=== PATIENT | male | born 1960 | race Hispanic/Latino ===

== ENCOUNTER → 2022-09-22 | Outpatient (CLI) | payer BC ==
[~2022-09-22] MED LIST: REGADENOSON 0.4 MG/5 ML PF SYG IVP ONE
== END | disposition home or self-care (01) ==
LOC: SHCH 08:46
PROVIDERS: ATTEND Internal Medicine Cardiovascular Disease
DX: R94.31 Abnormal electrocardiogram [ECG] [EKG] (principal)
CPT/HCPCS: 78452; 96374; 93017; J2785; A9500 ×2

== ENCOUNTER → 2022-09-30 | Outpatient (CLI) | payer BC | END | disposition home or self-care (01) | LOC: RAH 13:51 → EDUNIT# 14:00 | PROVIDERS: ATTEND Internal Medicine Cardiovascular Disease | DX: I08.0 Rheumatic disorders of both mitral and aortic valves (principal); R94.31 Abnormal electrocardiogram [ECG] [EKG] | CPT/HCPCS: 93306 ==

== ENCOUNTER 2022-10-17 06:27 | Day surgery (SDC) | payer BC ==
[2022-10-15 09:59] LABS: BASOPHILS % (AUTO) 0.3 % (0.0-5.0); EOSINOPHILS % (AUTO) 5.1 % (0.0-8.0); HEMATOCRIT 45.5 % (42-54); LYMPHOCYTES % (AUTO) 18.7 % (21.0-51.0); MEAN CORPUSCULAR HEMOGLOBIN 28.3 pg (27.0-33.0); MEAN CORPUSCULAR HGB CONC 32.7 g/dL (32.0-36.0); MEAN CORPUSCULAR VOLUME 86.3 fL (79-99); MONOCYTES % (AUTO) 8.8 % (3.0-13.0); NEUTROPHILS % (AUTO) 66.5 % (40.0-77.0); PLATELET COUNT (AUTO) 201 K/uL (130-400); RED BLOOD CELL COUNT(AUTO) 5.27 MIL/uL (4.50-6.20); RED CELL DISTRIBUTION WIDTH 13.2 % (11.0-15.5); WHITE BLOOD COUNT (AUTO) 7.1 K/uL (4.8-10.8)
[2022-10-15 10:07] LABS: CREATININE 0.9 mg/dL (0.5-1.5); POTASSIUM 4.2 mmol/L (3.5-5.1)
[2022-10-15 10:13] LABS: INR 0.99 (0.85-1.15); PROTHROMBIN TIME 10.8 SEC (9.6-11.6)
[2022-10-15 10:14] LABS: PARTIAL THROMBOPLASTIN TIME 30.6 SEC (26.3-35.5)
[2022-10-15 10:38] LABS: B-TYPE NATRIURETIC PEPTIDE 400 pg/mL (0-100)
[2022-10-15 16:07] VITALS: BP 151/63
[~2022-10-17] VITALS: Ht 167.6 cm; Wt 101.2 kg
[2022-10-17] VITALS (9 sets, daily range): BP systolic 129–163; BP diastolic 65–78
[~2022-10-17 06:27] MED LIST changes: +AEC81 PO; +ATOR10 PO; +FURO20TA4 PO; +GLIP10TA9 PO; +METF-444 PO; +METO-408 PO; +NITR0.4T50 SL; -REGADENOSON 0.4 MG/5 ML PF SYG IVP ONE
[2022-10-17] MEDS ORDERED: 0.9%NACL 1000ML 1,000 ML IV ONE (07:32)
[2022-10-17] MEDS ORDERED: NITROGLYCERIN 50MG VIAL ONE (09:39)
[2022-10-17] MEDS ORDERED: LIDOCAINE HCL 400MG/20ML VIAL ONE (09:39)
[2022-10-17] MEDS ORDERED: MIDAZOLAM HCL 1 MG/ML 2ML VIAL ONE (09:39)
[2022-10-17] MEDS ORDERED: HEPARIN 10,000 UNIT/10ML (1,000 UNIT/ML) VIAL ONE (09:39)
[2022-10-17] MEDS ORDERED: FENTANYL CITRATE PF 50 MCG/1 ML 2ML VIAL ONE (09:39)
[2022-10-17] MEDS ORDERED: IOHEXOL 350 MG/ML 100ML INFUS..BTL IV ONE (09:39)
[2022-10-17] MEDS ORDERED: NICARDIPINE 25MG INJ IV ONE (09:52)
[2022-10-17] MEDS ORDERED: 0.9%NACL 1000ML 1,000 ML IV SCH (11:30)
[2022-10-17] MEDS ORDERED: GLUCAGON 1MG KIT 1 MG ML IM PRN (11:30)
[2022-10-17] MEDS ORDERED: DEXTROSE 50%-WATER 50 ML DISP.SYRIN IV PRN (11:30)
== END 2022-10-17 14:50 | disposition home or self-care (01) ==
LOC: DAH 06:27
PROVIDERS: ATTEND Internal Medicine Cardiovascular Disease
DX: I25.119 Atherosclerotic heart disease of native coronary artery with unspecified angina pectoris (principal); R94.31 Abnormal electrocardiogram [ECG] [EKG]; E11.9 Type 2 diabetes mellitus without complications; I50.22 Chronic systolic (congestive) heart failure; J90 Pleural effusion, not elsewhere classified; Z79.899 Other long term (current) drug therapy; Z79.01 Long term (current) use of anticoagulants; Z79.82 Long term (current) use of aspirin; Z86.16 Personal history of COVID-19; Z83.3 Family history of diabetes mellitus; Z82.49 Family history of ischemic heart disease and other diseases of the circulatory system
CPT/HCPCS: 80048; 83880; 85025; 85610; 85730; 36415; 71045; 93005; 93458; 82948 ×2; C1769; C1894; J3010; J3490 ×3; J7030; J1644 ×2; J2250; Q9967; A4215; A4222; A4221; A4663; A4216; A4606; Q9965 ×2; A4223 ×3; 96360; 96361; 99156; 99157

== ENCOUNTER → 2023-02-18 | Outpatient (CLI) | payer BC ==
[~2023-02-18] MED LIST changes: -ATOR10 PO; +ATOR40TA71 PO; +ISOS30TA92 PO
== END | disposition home or self-care (01) ==
LOC: SHCH 14:38
PROVIDERS: ATTEND Internal Medicine Cardiovascular Disease
DX: I35.8 Other nonrheumatic aortic valve disorders (principal); I11.9 Hypertensive heart disease without heart failure; E11.9 Type 2 diabetes mellitus without complications; E78.5 Hyperlipidemia, unspecified; Z95.1 Presence of aortocoronary bypass graft
CPT/HCPCS: 93306

== ENCOUNTER 2024-02-10 13:33 | Inpatient (IN) | payer BC ==
[~2024-02-10] VITALS: Ht 167.6 cm; Wt 107.0 kg
[2024-02-10] VITALS (15 sets, daily range): BP systolic 78–122; BP diastolic 44–74; PULSE 98–120; RESP 1–18; TEMP 100.7; O2SAT 100
[~2024-02-10 13:33] MED LIST changes: +GLIP10TA16 PO; -GLIP10TA9 PO; +rocuRONium bROMide 10MG/1ML 5ML VL IV ONE
[2024-02-10] MEDS: CEFTRIAXONE 2GM VIAL IVPB ONE (14:28)
[2024-02-10] MEDS: 0.9%NACL 1000ML 2,859 ML IV ONE (14:29)
[2024-02-10 14:34] LABS: BASOPHILS # (AUTO) 0.02 K/uL (0.00-0.20); BASOPHILS % (AUTO) 0.2 % (0.0-5.0); HEMATOCRIT 39.7 % (42-54); IMMATURE GRANULOCYTE ABSOLUTE 0.13 K/uL (0-1); LYMPHOCYTES # (AUTO) 0.2 K/uL (1.0-4.8); LYMPHOCYTES % (AUTO) 2.2 % (21.0-51.0); MEAN CORPUSCULAR HEMOGLOBIN 29.8 pg (27.0-33.0); MEAN CORPUSCULAR HGB CONC 34.5 g/dL (32.0-36.0); MEAN CORPUSCULAR VOLUME 86.5 fL (79-99); MONOCYTES # (AUTO) 0.2 K/uL (0.1-1.0); MONOCYTES % (AUTO) 2.2 % (3.0-13.0); PLATELET COUNT (AUTO) 101 K/uL (130-400); RED BLOOD CELL COUNT(AUTO) 4.59 MIL/uL (4.50-6.20); RED CELL DISTRIBUTION WIDTH 14.3 % (11.0-15.5); WHITE BLOOD COUNT (AUTO) 9.6 K/uL (4.8-10.8)
[2024-02-10 14:47] LABS: CREATININE 2.7 mg/dL (0.5-1.3); POTASSIUM 3.5 mmol/L (3.5-5.1)
[2024-02-10 15:02] LABS: INFLUENZA TYPE A Negative For Type A (NEGATIVE); INFLUENZA TYPE B Negative For Type B (NEGATIVE)
[2024-02-10] MEDS: AZITHROMYCIN 500MG+NS 250ML 250 ML IVPB SCH (15:20)
[2024-02-10] MEDS: ALBUTEROL 0.083% 2.5 MG/3 ML INH IH ONE (15:25)
[2024-02-10] MEDS ORDERED: rocuRONium bROMide 10MG/1ML 5ML VL IV ONE (16:15)
[2024-02-10 16:36] LABS: APPEARANCE,URINE CLOUDY (CLEAR); BILIRUBIN,URINE NEGATIVE (NEGATIVE); COLOR,URINE YELLOW (YELLOW); GLUCOSE, URINE (UA) 300 mg/dL (NEGATIVE); KETONES,URINE NEGATIVE (NEGATIVE); LEUKOCYTE ESTERASE ,URINE 250 Leu/uL (NEGATIVE); NITRATE,URINE NEGATIVE (NEGATIVE); OCCULT BLOOD,URINE LARGE (NEGATIVE); PROTEIN,URINE 50 mg/dL (NEGATIVE); UROBILINOGEN,URINE 0.2 mg/dL (0.2-1.0)
[2024-02-10 16:37] LABS: ADD UA MICROSCOPIC YES
[2024-02-10 16:45] LABS: BACTERIA,URINE MOD /HPF (None Seen); MUCUS,URINE RARE LPF (None Seen); SQUAMOUS EPITHELIAL CELL,UR RARE /HPF (0-2)
[2024-02-10] MEDS: LORazepam 2 MG/ML 1 ML VIAL IVP ONE (16:49)
[2024-02-10] MEDS: LORazepam 2 MG/ML 1 ML VIAL ONE (16:49)
[2024-02-10 16:51] LABS: ABG HCO3 15.9 mmol/L (21.0-28.0); ABG OXYGEN SATURATION 96.4 % (94.0-98.0); ABG PCO2 25 mmHg (35-48); ABG PH 7.414 (7.350-7.450); CARBON MONOXIDE 0.1 % (0.5-1.5); DEVICE COMMENT RBMIKE; HHb 3.6; PO2, ARTERIAL BG 85.6 mmHg (83.0-108.0); VENT MODE, BG NC (ROOM AIR)
[2024-02-10] MEDS: acetaMINOPHEN 650 MG SUPPOSITORY RC ONE ×2 (16:59)
[2024-02-10 17:41] LABS: ABG HCO3 16.9 mmol/L (21.0-28.0); ABG OXYGEN SATURATION 94.2 % (94.0-98.0); ABG PCO2 27 mmHg (35-48); ABG PH 7.412 (7.350-7.450); DEVICE COMMENT RR; PO2, ARTERIAL BG 68.3 mmHg (83.0-108.0); VENT MODE, BG NC (ROOM AIR)
[2024-02-10] MEDS: NOREPINEPHRIN 4MG/NS 250ML 250 ML IV SCH ×2 (18:14→20:46)
[2024-02-10] MEDS: FENTanyl 1000MCG+NS 100ML 100 ML IV SCH (18:16)
[2024-02-10] MEDS: NOREPINEPHRIN 4MG/NS 250ML 250 ML IV ONE (18:16)
[2024-02-10] MEDS: 0.9%NACL 1000ML 1,000 ML IV ONE (18:17)
[2024-02-10] MEDS ORDERED: phenylEPHRINE HCL 10 MG in 0.9% NACL 250ML 250 ML IV PRN (18:30)
[2024-02-10] MEDS: phenylEPHRINE HCL 10 MG/ML 1ML VIAL IV ONE (18:59)
[2024-02-10] MEDS: MIDAZOLAM 50MG-0.9% NS 50ML 50 ML IV SCH (19:00)
[2024-02-10] MEDS: 0.9%NACL 1000ML 1,000 ML IV SCH (19:23)
[2024-02-10] MEDS ORDERED: ondanSETRON 4MG INJ IVP PRN (19:30)
[2024-02-10] MEDS: ibuPROFEN 600 MG TABLET PO ONE (19:35)
[2024-02-10] MEDS: dexaMETHasone SOD PHOSPHATE 4 MG/ML 1ML VIAL IVP ONE (20:47)
[2024-02-10 21:21] LABS: ABG BASE EXCESS -7.9 mmol/L (-2.0-3.0); ABG HCO3 16.8 mmol/L (21.0-28.0); ABG OXYGEN SATURATION 97.9 % (94.0-98.0); ABG PCO2 32 mmHg (35-48); ABG PH 7.333 (7.350-7.450); CARBON MONOXIDE 0.2 % (0.5-1.5); DEVICE COMMENT LR RN; HHb 2.1; VENT MODE, BG AC (ROOM AIR)
[2024-02-10] MEDS: DOXYCYCLINE 100MG+NS 250ML IV SCH (21:27)
[2024-02-10] MEDS: Solu-medROL 40MG VIAL IVP SCH (21:35)
[2024-02-10 21:48] LABS: ALBUMIN 2.4 g/dL (3.5-5.0); BILIRUBIN,DIRECT 0.3 mg/dL (0.0-0.3); BILIRUBIN,TOTAL 0.7 mg/dL (0.2-1.0); TOTAL PROTEIN, SERUM 6.2 g/dL (6.0-8.3)
[2024-02-10] MEDS: INSULIN humuLIN R 100 UNIT/ML 3ML SQ SCH (22:50)
[2024-02-10] MEDS: HEParin 5,000 UNIT VIAL SQ SCH (22:51)
[2024-02-10] MEDS ORDERED: HEParin 5,000 UNIT VIAL SQ SCH (23:00)
[2024-02-10 23:03] LABS: CREATININE 2.6 mg/dL (0.5-1.3); POTASSIUM 4.3 mmol/L (3.5-5.1)
[2024-02-10] MEDS: IpraTROPium 0.5 MG/2.5 ML INH IH SCH (23:44)
[2024-02-10] MEDS: ALBUTEROL 0.083% 2.5 MG/3 ML INH IH SCH (23:44)
[2024-02-11] VITALS (105 sets, daily range): BP systolic 83–150; BP diastolic 38–86; PULSE 75–100; RESP 15–23; TEMP 98.4–101.2; O2SAT 98–100
[2024-02-11] MEDS: acetaMINOPHEN 325 MG TAB PO PRN (00:56)
[2024-02-11] MEDS: VASOpressin 20 UNITS/ML 1ML Vi 20 UNITS in 0.9%NACL 100ML 100 ML IV SCH (03:50)
[2024-02-11 04:07] LABS: BASOPHILS # (AUTO) 0.11 K/uL (0.00-0.20); BASOPHILS % (AUTO) 0.5 % (0.0-5.0); HEMATOCRIT 35.8 % (42-54); IMMATURE GRANULOCYTE ABSOLUTE 1.27 K/uL (0-1); LYMPHOCYTES # (AUTO) 0.5 K/uL (1.0-4.8); LYMPHOCYTES % (AUTO) 2.1 % (21.0-51.0); MEAN CORPUSCULAR HEMOGLOBIN 29.8 pg (27.0-33.0); MEAN CORPUSCULAR HGB CONC 33.5 g/dL (32.0-36.0); MEAN CORPUSCULAR VOLUME 88.8 fL (79-99); MONOCYTES % (AUTO) 4.6 % (3.0-13.0); NEUTROPHILS # (AUTO) 18.4 K/uL (1.8-7.7); NEUTROPHILS % (AUTO) 86.8 % (40.0-77.0); PLATELET COUNT (AUTO) 64 K/uL (130-400); RED BLOOD CELL COUNT(AUTO) 4.03 MIL/uL (4.50-6.20); RED CELL DISTRIBUTION WIDTH 14.6 % (11.0-15.5); WHITE BLOOD COUNT (AUTO) 21.2 K/uL (4.8-10.8)
[2024-02-11 04:34] LABS: CREATININE 2.5 mg/dL (0.5-1.3); PHOSPHORUS 4.8 mg/dL (2.5-4.9); POTASSIUM 4.7 mmol/L (3.5-5.1); THYROID STIMULATING HORMONE 0.77 uIU/mL (0.36-3.74)
[2024-02-11] MEDS: CEFTRIAXONE 2GM VIAL IVPB SCH (08:24)
[2024-02-11] MEDS: PANTOPrazole 40 MG/VIAL IVP SCH (08:24)
[2024-02-11] MEDS ORDERED: ENOXAPARIN SODIUM 40 MG/0.4 ML SYRINGE SQ SCH (09:00)
[2024-02-11] MEDS: SODIUM BICARB 50MEQ 50ML VIAL IV ONE (10:16)
[2024-02-11 11:09] LABS: ABG BASE EXCESS -5.6 mmol/L (-2.0-3.0); ABG PCO2 40 mmHg (35-48); ABG PH 7.319 (7.350-7.450); CARBON MONOXIDE 0.1 % (0.5-1.5); DEVICE COMMENT NELLY NP RR; PO2, ARTERIAL BG 98.3 mmHg (83.0-108.0); VENT MODE, BG AC (ROOM AIR)
[2024-02-11] MEDS: SODIUM BICARB 8.4% 50ML SYRING 150 MEQ in DEXTROSE 5%-WATER 1,000 ML IVP SCH (12:00)
[2024-02-11 12:10] LABS: CREATININE 2.5 mg/dL (0.5-1.3); POTASSIUM 4.9 mmol/L (3.5-5.1)
[2024-02-11] MEDS ORDERED: VANCOMYCIN PROTOCOL PER PHARMACY IV SCH (13:00)
[2024-02-11] MEDS: ceFEPime HCL 1 GM VIAL IVPB SCH (13:24)
[2024-02-11] MEDS: acetaMINOPHEN 650 MG SUPPOSITORY RC PRN (13:38)
[2024-02-11] MEDS: dexmedeTOMIDine 400MCG/NS100ML IV SCH (13:42)
[2024-02-11] MEDS: VANCOMYCIN 2GM/500 ML BAG 500 ML IV ONE (14:00)
[2024-02-11] MEDS: metRONIDazole 500MG/100ML BAG 100 ML IVPB SCH (14:14)
[2024-02-11 19:28] LABS: POTASSIUM,URINE RANDOM 52 mmol/L (25-125); SODIUM,URINE RANDOM 27 mmol/l (40-220)
[2024-02-11 19:29] LABS: CHLORIDE,URINE RANDOM 29 mmol/L (110-250)
[2024-02-11] MEDS: CHLORHEXIDINE GLUCONATE 15 ML MOUTHWASH MM SCH (20:21)
[2024-02-11] MEDS: ARTIFICAL TEARS SOL 15 ML OU SCH (20:53)
[2024-02-12] VITALS (120 sets, daily range): BP systolic 86–141; BP diastolic 53–80; PULSE 66–83; RESP 18–25; TEMP 96.9–100; O2SAT 95–100
[2024-02-12 03:40] LABS: ABG BASE EXCESS -1.9 mmol/L (-2.0-3.0); ABG HCO3 22.5 mmol/L (21.0-28.0); ABG OXYGEN SATURATION 98.5 % (94.0-98.0); ABG PCO2 37 mmHg (35-48); ABG PH 7.401 (7.350-7.450); CARBON MONOXIDE 0.3 % (0.5-1.5); DEVICE COMMENT RR; HHb 1.5; PO2, ARTERIAL BG 137.4 mmHg (83.0-108.0); VENT MODE, BG AC (ROOM AIR)
[2024-02-12 04:11] LABS: BASOPHILS # (AUTO) 0.05 K/uL (0.00-0.20); BASOPHILS % (AUTO) 0.5 % (0.0-5.0); HEMATOCRIT 34.6 % (42-54); IMMATURE GRANULOCYTE ABSOLUTE 0.36 K/uL (0-1); LYMPHOCYTES # (AUTO) 0.5 K/uL (1.0-4.8); LYMPHOCYTES % (AUTO) 4.6 % (21.0-51.0); MEAN CORPUSCULAR HEMOGLOBIN 29.7 pg (27.0-33.0); MEAN CORPUSCULAR HGB CONC 33.2 g/dL (32.0-36.0); MEAN CORPUSCULAR VOLUME 89.4 fL (79-99); MONOCYTES # (AUTO) 0.5 K/uL (0.1-1.0); MONOCYTES % (AUTO) 4.9 % (3.0-13.0); NEUTROPHILS # (AUTO) 9.6 K/uL (1.8-7.7); NEUTROPHILS % (AUTO) 86.7 % (40.0-77.0); NUCLEATED RED BLOOD CELLS 0.2 % (0.0-0.19); RED BLOOD CELL COUNT(AUTO) 3.87 MIL/uL (4.50-6.20); RED CELL DISTRIBUTION WIDTH 14.8 % (11.0-15.5); WHITE BLOOD COUNT (AUTO) 11.1 K/uL (4.8-10.8)
[2024-02-12 04:45] LABS: CREATININE 1.4 mg/dL (0.5-1.3); PHOSPHORUS 2.9 mg/dL (2.5-4.9); POTASSIUM 4.5 mmol/L (3.5-5.1); URIC ACID 7.2 mg/dL (2.6-7.2)
[2024-02-12 04:50] LABS: B-TYPE NATRIURETIC PEPTIDE 726 pg/mL (0-100)
[2024-02-12 05:05] LABS: PLATELET COUNT (AUTO) 72 K/uL (130-400)
[2024-02-12] MEDS: atorVAStatin 40 MG TABLET PO SCH (08:06)
[2024-02-12] MEDS: polyETHYLene GLYCol 3350 17 GM POWD.PACK PO SCH (08:06)
[2024-02-12] MEDS ORDERED: ASPIRIN 81 MG EC TAB PO SCH (09:00)
[2024-02-12] MEDS ORDERED: SPIR25TA6 PO (11:07)
[2024-02-12] MEDS ORDERED: FAMO20TA8 PO (11:07)
[2024-02-12] MEDS ORDERED: TELM40TA8 PO (11:09)
[2024-02-12] MEDS: MEROPENEM 2 GM in 0.9%NACL 100ML 100 ML IV SCH (11:53)
[2024-02-12] MEDS: INSULIN GLARgine 100 UNITS/ML 10 ML VIAL SQ SCH (11:56)
[2024-02-12 11:57] LABS: INR 1.18 (0.85-1.15); PROTHROMBIN TIME 12.6 SEC (9.6-11.6)
[2024-02-12] MEDS ORDERED: COMPOUND IV MISC 1 EACH IVSOLN MISC PRN (12:00)
[2024-02-12] MEDS ORDERED: VANCOMYCIN 1G/250ML KIT 250 ML IV SCH (14:00)
[2024-02-12] MEDS: miDODRine HCL 5 MG TABLET PO SCH (14:37)
[2024-02-13] VITALS (157 sets, daily range): BP systolic 96–145; BP diastolic 44–81; PULSE 61–107; RESP 13–46; TEMP 96.4–100; O2SAT 93–100
[2024-02-13 03:49] LABS: ABG BASE EXCESS 0.5 mmol/L (-2.0-3.0); ABG HCO3 24.1 mmol/L (21.0-28.0); ABG OXYGEN SATURATION 95.1 % (94.0-98.0); ABG PCO2 36 mmHg (35-48); ABG PH 7.444 (7.350-7.450); DEVICE COMMENT RB RN TED; PO2, ARTERIAL BG 71.6 mmHg (83.0-108.0); VENT MODE, BG ACVC (ROOM AIR)
[2024-02-13 03:50] LABS: BASOPHILS # (AUTO) 0.04 K/uL (0.00-0.20); BASOPHILS % (AUTO) 0.3 % (0.0-5.0); EOSINOPHILS # (AUTO) 0.12 K/uL (0.00-0.70); EOSINOPHILS % (AUTO) 0.9 % (0.0-8.0); HEMATOCRIT 37.1 % (42-54); IMMATURE GRANULOCYTE ABSOLUTE 0.12 K/uL (0-1); LYMPHOCYTES # (AUTO) 0.5 K/uL (1.0-4.8); LYMPHOCYTES % (AUTO) 3.7 % (21.0-51.0); MEAN CORPUSCULAR HGB CONC 32.9 g/dL (32.0-36.0); MEAN CORPUSCULAR VOLUME 88.3 fL (79-99); MONOCYTES # (AUTO) 0.5 K/uL (0.1-1.0); MONOCYTES % (AUTO) 3.3 % (3.0-13.0); NEUTROPHILS # (AUTO) 12.8 K/uL (1.8-7.7); NEUTROPHILS % (AUTO) 90.9 % (40.0-77.0); NUCLEATED RED BLOOD CELLS 0.2 % (0.0-0.19); PLATELET COUNT (AUTO) 51 K/uL (130-400); RED CELL DISTRIBUTION WIDTH 15.1 % (11.0-15.5)
[2024-02-13 04:18] LABS: ALBUMIN 1.7 g/dL (3.5-5.0); BILIRUBIN,TOTAL 0.5 mg/dL (0.2-1.0); CREATININE 1.1 mg/dL (0.5-1.3); MAGNESIUM 2.3 mg/dL (1.80-2.40); PHOSPHORUS 1.8 mg/dL (2.5-4.9); POTASSIUM 3.8 mmol/L (3.5-5.1); TOTAL PROTEIN, SERUM 5.6 g/dL (6.0-8.3)
[2024-02-13] MEDS: INSULIN humuLIN R 100 UNIT/ML 3ML SQ SCH (07:06)
[2024-02-13] MEDS ORDERED: INSULIN GLARgine 100 UNITS/ML 10 ML VIAL SQ SCH (07:30)
[2024-02-13 08:54] LABS: ABG BASE EXCESS -2.4 mmol/L (-2.0-3.0); ABG HCO3 21.4 mmol/L (21.0-28.0); ABG OXYGEN SATURATION 94.7 % (94.0-98.0); ABG PCO2 34 mmHg (35-48); ABG PH 7.415 (7.350-7.450); DEVICE COMMENT RR
[2024-02-13] MEDS ORDERED: COMPOUND IV REFRIGERATED 1 EACH IVSOLN MISC PRN (12:00)
[2024-02-13 12:21] LABS: CREATININE 1.2 mg/dL (0.5-1.3); POTASSIUM 3.4 mmol/L (3.5-5.1)
[2024-02-13] MEDS: DEXTROSE 5%-WATER 1,000 ML IV SCH (15:17)
[2024-02-13 20:24] LABS: CREATININE 1.1 mg/dL (0.5-1.3); POTASSIUM 3.8 mmol/L (3.5-5.1)
[2024-02-13 20:28] LABS: BILIRUBIN,TOTAL 0.6 mg/dL (0.2-1.0)
[2024-02-13] MEDS: INSULIN GLARgine 100 UNITS/ML 10 ML VIAL SQ SCH (21:00)
[2024-02-13 21:48] LABS: ABG BASE EXCESS -0.6 mmol/L (-2.0-3.0); ABG OXYGEN SATURATION 99.1 % (94.0-98.0); ABG PCO2 40 mmHg (35-48); ABG PH 7.402 (7.350-7.450); CARBON MONOXIDE 0.3 % (0.5-1.5); HHb 0.9; PO2, ARTERIAL BG 224.5 mmHg (83.0-108.0); VENT MODE, BG ambu bag (ROOM AIR)
[2024-02-13 22:14] LABS: BASOPHILS # (AUTO) 0.05 K/uL (0.00-0.20); BASOPHILS % (AUTO) 0.3 % (0.0-5.0); EOSINOPHILS # (AUTO) 0.06 K/uL (0.00-0.70); EOSINOPHILS % (AUTO) 0.4 % (0.0-8.0); HEMATOCRIT 39.4 % (42-54); IMMATURE GRANULOCYTE ABSOLUTE 0.15 K/uL (0-1); LYMPHOCYTES # (AUTO) 0.7 K/uL (1.0-4.8); MEAN CORPUSCULAR HEMOGLOBIN 29.8 pg (27.0-33.0); MEAN CORPUSCULAR HGB CONC 33.2 g/dL (32.0-36.0); MEAN CORPUSCULAR VOLUME 89.7 fL (79-99); MONOCYTES # (AUTO) 0.6 K/uL (0.1-1.0); MONOCYTES % (AUTO) 3.9 % (3.0-13.0); NEUTROPHILS # (AUTO) 13.1 K/uL (1.8-7.7); NEUTROPHILS % (AUTO) 89.4 % (40.0-77.0); PLATELET COUNT (AUTO) 55 K/uL (130-400); RED BLOOD CELL COUNT(AUTO) 4.39 MIL/uL (4.50-6.20); RED CELL DISTRIBUTION WIDTH 15.3 % (11.0-15.5); WHITE BLOOD COUNT (AUTO) 14.7 K/uL (4.8-10.8)
[2024-02-13] MEDS: MIDAZOLAM HCL 1 MG/ML 2ML VIAL ONE (22:26)
[2024-02-13] MEDS: MIDAZOLAM 100MG-0.9% NS 100ML 100ML BAG IV ONE (22:30)
[2024-02-13] MEDS: DEXTROSE 50%-WATER 50 ML DISP.SYRIN IV ONE (23:08)
[2024-02-13] MEDS: EPINEPHrine 1MG/10ML(1:10,000) 0.1 MG/ML SYG ONE (23:08)
[2024-02-13] MEDS: SODIUM BICARB 50MEQ 50ML VIAL 150 ML ONE (23:08)
[2024-02-13] MEDS: SODIUM BICARB 50MEQ 50ML VIAL 50 ML ONE (23:08)
[2024-02-14] VITALS (124 sets, daily range): BP systolic 87–154; BP diastolic 34–83; PULSE 56–73; RESP 12–40; TEMP 97.9–99.8; O2SAT 97–100
[2024-02-14 04:02] LABS: BASOPHILS # (AUTO) 0.04 K/uL (0.00-0.20); BASOPHILS % (AUTO) 0.3 % (0.0-5.0); EOSINOPHILS # (AUTO) 0.09 K/uL (0.00-0.70); EOSINOPHILS % (AUTO) 0.7 % (0.0-8.0); HEMATOCRIT 39.9 % (42-54); LYMPHOCYTES # (AUTO) 0.7 K/uL (1.0-4.8); MEAN CORPUSCULAR HEMOGLOBIN 29.1 pg (27.0-33.0); MEAN CORPUSCULAR HGB CONC 32.8 g/dL (32.0-36.0); MEAN CORPUSCULAR VOLUME 88.7 fL (79-99); MONOCYTES # (AUTO) 0.6 K/uL (0.1-1.0); NEUTROPHILS # (AUTO) 10.6 K/uL (1.8-7.7); NEUTROPHILS % (AUTO) 87.2 % (40.0-77.0); PLATELET COUNT (AUTO) 53 K/uL (130-400); RED CELL DISTRIBUTION WIDTH 15.3 % (11.0-15.5); WHITE BLOOD COUNT (AUTO) 12.1 K/uL (4.8-10.8)
[2024-02-14] MEDS: MEROPENEM 2 GM in 0.9%NACL 100ML 100 ML IV SCH (04:02)
[2024-02-14 04:35] LABS: MAGNESIUM 2.4 mg/dL (1.80-2.40)
[2024-02-14] MEDS: THIAMINE HCL 100 MG/ML 2ML VIAL IVP SCH (09:04)
[2024-02-14] MEDS: MULTIVITAMINS/MINERALS/IRO TAB PO SCH (09:04)
[2024-02-14] MEDS: VITAMIN B COMPLEX 1 CAPSULE PO SCH (09:07)
[2024-02-14] MEDS: dexmedeTOMIDine 400MCG/NS100ML IV SCH (10:23)
[2024-02-14] MEDS: FENTanyl 1000MCG+NS 100ML 100 ML IV SCH (10:24)
[2024-02-14] MEDS: diazePAM 5 MG TAB PO SCH (11:19)
[2024-02-14 11:20] LABS: ABG BASE EXCESS -1.6 mmol/L (-2.0-3.0); ABG HCO3 22.7 mmol/L (21.0-28.0); ABG OXYGEN SATURATION 96.3 % (94.0-98.0); ABG PCO2 37 mmHg (35-48); ABG PH 7.405 (7.350-7.450); DEVICE COMMENT rr judithrn; VENT MODE, BG ac (ROOM AIR)
[2024-02-14 12:14] LABS: POTASSIUM 3.7 mmol/L (3.5-5.1)
[2024-02-14] MEDS: Solu-medROL 40MG VIAL IVP SCH (16:45)
[2024-02-15] VITALS (51 sets, daily range): BP systolic 102–165; BP diastolic 54–87; PULSE 65–79; RESP 5–24; TEMP 99–99.8; O2SAT 96–100
[2024-02-15 06:03] LABS: INR 1.12 (0.85-1.15)
[2024-02-15 06:20] LABS: CREATININE 1.3 mg/dL (0.5-1.3); POTASSIUM 4.5 mmol/L (3.5-5.1)
[2024-02-15 06:26] LABS: BASOPHILS # (AUTO) 0.03 K/uL (0.00-0.20); BASOPHILS % (AUTO) 0.4 % (0.0-5.0); HEMATOCRIT 42.2 % (42-54); LYMPHOCYTES # (AUTO) 0.3 K/uL (1.0-4.8); LYMPHOCYTES % (AUTO) 3.5 % (21.0-51.0); MEAN CORPUSCULAR HEMOGLOBIN 29.3 pg (27.0-33.0); MEAN CORPUSCULAR HGB CONC 32.5 g/dL (32.0-36.0); MEAN CORPUSCULAR VOLUME 90.4 fL (79-99); MONOCYTES # (AUTO) 0.4 K/uL (0.1-1.0); MONOCYTES % (AUTO) 5.1 % (3.0-13.0); NEUTROPHILS # (AUTO) 7.4 K/uL (1.8-7.7); NEUTROPHILS % (AUTO) 89.8 % (40.0-77.0); NUCLEATED RED BLOOD CELLS 0.8 % (0.0-0.19); PLATELET COUNT (AUTO) 49 K/uL (130-400); RED BLOOD CELL COUNT(AUTO) 4.67 MIL/uL (4.50-6.20); RED CELL DISTRIBUTION WIDTH 15.5 % (11.0-15.5); WHITE BLOOD COUNT (AUTO) 8.3 K/uL (4.8-10.8)
[2024-02-15] MEDS: doCUSate SODIUM 100 MG CAP PO PRN (08:07)
[2024-02-15] MEDS: LACTULOSE 20 GM/30 ML UDCUP PO PRN (08:20)
[2024-02-15 16:37] LABS: APPEARANCE,URINE TURBID (CLEAR); BILIRUBIN,URINE NEGATIVE (NEGATIVE); COLOR,URINE YELLOW (YELLOW); GLUCOSE, URINE (UA) NEGATIVE (NEGATIVE); KETONES,URINE NEGATIVE (NEGATIVE); LEUKOCYTE ESTERASE ,URINE 500 Leu/uL (NEGATIVE); NITRATE,URINE NEGATIVE (NEGATIVE); OCCULT BLOOD,URINE LARGE (NEGATIVE); PH,URINE 5.5 (5.0-8.0); PROTEIN,URINE 20 mg/dL (NEGATIVE); UROBILINOGEN,URINE 0.2 mg/dL (0.2-1.0)
[2024-02-15 16:38] LABS: ADD UA MICROSCOPIC YES; SODIUM,URINE RANDOM 145 mmol/l (40-220)
[2024-02-15 16:41] LABS: BACTERIA,URINE FEW /HPF (None Seen); MUCUS,URINE RARE LPF (None Seen); RBC,URINE 51-100 /HPF (0-1); UNCLASSIFIED CRYSTAL 23 /HPF (None Seen); WBC CLUMP FEW /HPF (0-1); WBC,URINE 26-50 /HPF (0-1); YEAST,URINE BUDDING FEW /HPF (None Seen)
[2024-02-15] MEDS ORDERED: hydrALAZine 20MG/ML VIAL IV PRN (19:00)
[2024-02-15] MEDS: BALSAM PERU/CASTOR OIL 60 GM TUBE TP SCH (22:32)
[2024-02-15] MEDS: MIDAZOLAM 100MG-0.9% NS 100ML 100 ML IV ONE (22:34)
[2024-02-16] VITALS (113 sets, daily range): BP systolic 79–171; BP diastolic 34–82; PULSE 65–94; RESP 15–24; TEMP 98.8–99.9; O2SAT 96–99
[2024-02-16] MEDS ORDERED: MIDAZOLAM 100MG-0.9% NS 100ML 50 ML IV PRN
[2024-02-16 04:19] LABS: BASOPHILS # (AUTO) 0.02 K/uL (0.00-0.20); BASOPHILS % (AUTO) 0.2 % (0.0-5.0); EOSINOPHILS # (AUTO) 0.03 K/uL (0.00-0.70); EOSINOPHILS % (AUTO) 0.3 % (0.0-8.0); HEMATOCRIT 36.3 % (42-54); IMMATURE GRANULOCYTE ABSOLUTE 0.09 K/uL (0-1); LYMPHOCYTES # (AUTO) 1.6 K/uL (1.0-4.8); LYMPHOCYTES % (AUTO) 15.1 % (21.0-51.0); MEAN CORPUSCULAR HEMOGLOBIN 29.5 pg (27.0-33.0); MEAN CORPUSCULAR HGB CONC 32.8 g/dL (32.0-36.0); MEAN CORPUSCULAR VOLUME 89.9 fL (79-99); MONOCYTES # (AUTO) 0.6 K/uL (0.1-1.0); MONOCYTES % (AUTO) 5.3 % (3.0-13.0); NEUTROPHILS # (AUTO) 8.3 K/uL (1.8-7.7); NEUTROPHILS % (AUTO) 78.3 % (40.0-77.0); NUCLEATED RED BLOOD CELLS 0.2 % (0.0-0.19); PLATELET COUNT (AUTO) 65 K/uL (130-400); RED BLOOD CELL COUNT(AUTO) 4.04 MIL/uL (4.50-6.20); RED CELL DISTRIBUTION WIDTH 15.2 % (11.0-15.5); WHITE BLOOD COUNT (AUTO) 10.6 K/uL (4.8-10.8)
[2024-02-16 04:32] LABS: MAGNESIUM 2.2 mg/dL (1.80-2.40); PHOSPHORUS 2.9 mg/dL (2.5-4.9); URIC ACID 6.5 mg/dL (2.6-7.2)
[2024-02-16] MEDS ORDERED: PHARMACY COMMUNICATION MISC SCH (06:30)
[2024-02-16] MEDS: MIDAZOLAM 50MG-0.9% NS 50ML 50 ML IV PRN (06:30)
[2024-02-16] MEDS: metOPROLol sucCINATE 25 MG TAB.SR.24H PO SCH (09:00)
[2024-02-16] MEDS: ISOSORBIDE MONO 30MG SR TAB PO SCH (09:00)
[2024-02-16 12:01] LABS: ABG HCO3 26.1 mmol/L (21.0-28.0); ABG OXYGEN SATURATION 92.7 % (94.0-98.0); ABG PCO2 39 mmHg (35-48); ABG PH 7.442 (7.350-7.450); CARBON MONOXIDE 0.6 % (0.5-1.5); DEVICE COMMENT LEO LVN LR; HHb 7.2; VENT MODE, BG AC (ROOM AIR)
[2024-02-16 12:19] LABS: CREATININE 1.3 mg/dL (0.5-1.3); POTASSIUM 4.3 mmol/L (3.5-5.1)
[2024-02-16 12:23] LABS: ALBUMIN 1.8 g/dL (3.5-5.0); TOTAL PROTEIN, SERUM 5.4 g/dL (6.0-8.3)
[2024-02-16 16:32] LABS: GLUCOSE, CSF 116 mg/dL (40-70); TOTAL PROTEIN, CSF 121 mg/dL (15-45)
[2024-02-16 17:01] LABS: RED BLOOD CELL1,CSF 20 CMM (0-0); WHITE BLOOD CELL1,CSF 0 CMM (0-5)
[2024-02-16 17:12] LABS: APPEARANCE,CSF CLEAR (CLEAR); COLOR,CSF COLORLESS (COLORLESS); CSF TUBE NUMBER TUBE NO.1
[2024-02-16 17:13] LABS: APPEARANCE2,CSF CLEAR (CLEAR); COLOR2,CSF COLORLESS (COLORLESS); CSF 2ND TUBE NUMBER TUBE NO.3
[2024-02-17] VITALS (112 sets, daily range): BP systolic 65–179; BP diastolic 41–91; PULSE 60–126; RESP 9–28; TEMP 97.5–98.7; O2SAT 97–99
[2024-02-17 03:44] LABS: BASOPHILS # (AUTO) 0.03 K/uL (0.00-0.20); BASOPHILS % (AUTO) 0.2 % (0.0-5.0); EOSINOPHILS # (AUTO) 0.41 K/uL (0.00-0.70); EOSINOPHILS % (AUTO) 2.2 % (0.0-8.0); HEMATOCRIT 37.4 % (42-54); IMMATURE GRANULOCYTE ABSOLUTE 0.25 K/uL (0-1); LYMPHOCYTES # (AUTO) 2.4 K/uL (1.0-4.8); MEAN CORPUSCULAR HEMOGLOBIN 29.3 pg (27.0-33.0); MEAN CORPUSCULAR HGB CONC 32.4 g/dL (32.0-36.0); MEAN CORPUSCULAR VOLUME 90.6 fL (79-99); MONOCYTES # (AUTO) 0.7 K/uL (0.1-1.0); MONOCYTES % (AUTO) 3.8 % (3.0-13.0); NEUTROPHILS # (AUTO) 14.8 K/uL (1.8-7.7); NEUTROPHILS % (AUTO) 79.5 % (40.0-77.0); PLATELET COUNT (AUTO) 66 K/uL (130-400); RED BLOOD CELL COUNT(AUTO) 4.13 MIL/uL (4.50-6.20); RED CELL DISTRIBUTION WIDTH 15.2 % (11.0-15.5); WHITE BLOOD COUNT (AUTO) 18.6 K/uL (4.8-10.8)
[2024-02-17 04:01] LABS: ALBUMIN 1.5 g/dL (3.5-5.0); BILIRUBIN,TOTAL 0.8 mg/dL (0.2-1.0); CREATININE 0.9 mg/dL (0.5-1.3); PHOSPHORUS 3.2 mg/dL (2.5-4.9); POTASSIUM 3.9 mmol/L (3.5-5.1); TOTAL PROTEIN, SERUM 4.7 g/dL (6.0-8.3)
[2024-02-17] MEDS: BALSAM PERU/CASTOR OIL 60 GM TUBE TP SCH (13:51)
[2024-02-17] MEDS: furoSEMIDE 20MG VIAL IV SCH (14:12)
[2024-02-17] MEDS: proPOFol 1000 MG/100 ML IV PRN (22:54)
[2024-02-18] VITALS (95 sets, daily range): BP systolic 75–166; BP diastolic 42–77; PULSE 57–108; RESP 14–33; TEMP 97.1–99.2; O2SAT 93–100
[2024-02-18 02:10] LABS: HERPES SIMPLEX VIRUS-1 BY PCR Negative (Negative); HERPES SIMPLEX VIRUS-2 BY PCR Negative (Negative)
[2024-02-18 04:23] LABS: HEMATOCRIT 37.4 % (42-54); MEAN CORPUSCULAR HEMOGLOBIN 29.9 pg (27.0-33.0); MEAN CORPUSCULAR HGB CONC 32.9 g/dL (32.0-36.0); MEAN CORPUSCULAR VOLUME 90.8 fL (79-99); PLATELET COUNT (AUTO) 77 K/uL (130-400); RED BLOOD CELL COUNT(AUTO) 4.12 MIL/uL (4.50-6.20); RED CELL DISTRIBUTION WIDTH 14.7 % (11.0-15.5); WHITE BLOOD COUNT (AUTO) 18.3 K/uL (4.8-10.8)
[2024-02-18 04:51] LABS: ALBUMIN 1.7 g/dL (3.5-5.0); BILIRUBIN,TOTAL 0.9 mg/dL (0.2-1.0); CREATININE 0.8 mg/dL (0.5-1.3); MAGNESIUM 1.9 mg/dL (1.80-2.40); POTASSIUM 3.6 mmol/L (3.5-5.1); TOTAL PROTEIN, SERUM 5.5 g/dL (6.0-8.3)
[2024-02-18 05:53] LABS: BAND NEUTROPHILS % (MANUAL) 2 % (0-2); EOSINOPHILS % (MANUAL) 1 % (1-6); LYMPHOCYTES % (MANUAL) 5 % (22-44); MAN.DIFF COMMENT-IMPRESSION MANUAL DIFFERENTIAL; MONOCYTES % (MANUAL) 3 % (2-9); SEGMENTED NEUTROPHILS % 89 % (40-70); TOTAL CELLS COUNTED 100
[2024-02-18 05:54] LABS: PLATELET MORPHOLOGY COMMENT DECREASED
[2024-02-19] VITALS (27 sets, daily range): BP systolic 116–138; BP diastolic 53–71; PULSE 75–98; RESP 18–32; TEMP 98.2–98.6; O2SAT 95–100
[2024-02-19 04:41] LABS: BASOPHILS # (AUTO) 0.01 K/uL (0.00-0.20); BASOPHILS % (AUTO) 0.1 % (0.0-5.0); EOSINOPHILS # (AUTO) 0.23 K/uL (0.00-0.70); EOSINOPHILS % (AUTO) 1.8 % (0.0-8.0); HEMATOCRIT 34.3 % (42-54); IMMATURE GRANULOCYTE ABSOLUTE 0.09 K/uL (0-1); LYMPHOCYTES # (AUTO) 1.3 K/uL (1.0-4.8); LYMPHOCYTES % (AUTO) 10.4 % (21.0-51.0); MEAN CORPUSCULAR HEMOGLOBIN 28.9 pg (27.0-33.0); MEAN CORPUSCULAR HGB CONC 32.4 g/dL (32.0-36.0); MEAN CORPUSCULAR VOLUME 89.3 fL (79-99); MONOCYTES # (AUTO) 0.6 K/uL (0.1-1.0); MONOCYTES % (AUTO) 4.8 % (3.0-13.0); NEUTROPHILS # (AUTO) 10.4 K/uL (1.8-7.7); NEUTROPHILS % (AUTO) 82.2 % (40.0-77.0); PLATELET COUNT (AUTO) 105 K/uL (130-400); RED BLOOD CELL COUNT(AUTO) 3.84 MIL/uL (4.50-6.20); RED CELL DISTRIBUTION WIDTH 14.6 % (11.0-15.5); WHITE BLOOD COUNT (AUTO) 12.6 K/uL (4.8-10.8)
[2024-02-19 05:08] LABS: ALBUMIN 1.7 g/dL (3.5-5.0); BILIRUBIN,TOTAL 1.1 mg/dL (0.2-1.0); CREATININE 0.7 mg/dL (0.5-1.3); MAGNESIUM 1.9 mg/dL (1.80-2.40); POTASSIUM 3.8 mmol/L (3.5-5.1); TOTAL PROTEIN, SERUM 5.5 g/dL (6.0-8.3)
[2024-02-19] MEDS ORDERED: PoTASSium chloRIDE 20MEQ ER 20 MEQ ERTAB PO PRN (20:00)
[2024-02-19] MEDS: MAGNESIUM 2GM PREMIX 50ML 50 ML IV PRN (21:58)
[2024-02-20] VITALS (14 sets, daily range): BP systolic 103–163; BP diastolic 60–95; PULSE 82–107; RESP 18–20; TEMP 98–98.9; O2SAT 94–97
[2024-02-20 03:50] LABS: HEMATOCRIT 35.2 % (42-54); MEAN CORPUSCULAR HEMOGLOBIN 28.9 pg (27.0-33.0); MEAN CORPUSCULAR HGB CONC 32.7 g/dL (32.0-36.0); MEAN CORPUSCULAR VOLUME 88.4 fL (79-99); RED BLOOD CELL COUNT(AUTO) 3.98 MIL/uL (4.50-6.20); RED CELL DISTRIBUTION WIDTH 14.3 % (11.0-15.5); WHITE BLOOD COUNT (AUTO) 12.2 K/uL (4.8-10.8)
[2024-02-20 04:02] LABS: ALBUMIN 1.9 g/dL (3.5-5.0); BILIRUBIN,TOTAL 1.3 mg/dL (0.2-1.0); CREATININE 0.7 mg/dL (0.5-1.3); POTASSIUM 3.5 mmol/L (3.5-5.1); TOTAL PROTEIN, SERUM 5.9 g/dL (6.0-8.3)
[2024-02-20] MEDS: PoTASSium chl 10% ELIXIR 20MEQ 20 MEQ/15 ML UDCUP PO PRN (04:59)
[2024-02-20] MEDS: PoTASSium chloRIDE 20MEQ/100ML 100 ML IV PRN (10:15)
[2024-02-20] MEDS: ASPIRIN 81 MG EC TAB PO SCH (10:52)
[2024-02-20] MEDS: cloPIDOgrel 75MG TAB PO SCH (10:52)
[2024-02-20] MEDS: ARTIFICAL TEARS SOL 15 ML OU SCH (21:26)
[2024-02-20] MEDS: INSULIN GLARgine 100 UNITS/ML 10 ML VIAL SQ SCH (21:46)
[2024-02-21] VITALS (14 sets, daily range): BP systolic 121–145; BP diastolic 61–77; PULSE 81–104; RESP 16–19; TEMP 97.6–98.9; O2SAT 95–99
[2024-02-21 04:12] LABS: HEMATOCRIT 32.9 % (42-54); MEAN CORPUSCULAR HEMOGLOBIN 29.7 pg (27.0-33.0); MEAN CORPUSCULAR HGB CONC 33.7 g/dL (32.0-36.0); RED BLOOD CELL COUNT(AUTO) 3.74 MIL/uL (4.50-6.20); RED CELL DISTRIBUTION WIDTH 14.1 % (11.0-15.5); WHITE BLOOD COUNT (AUTO) 10.9 K/uL (4.8-10.8)
[2024-02-21 04:30] LABS: ALBUMIN 1.9 g/dL (3.5-5.0); BILIRUBIN,TOTAL 1.1 mg/dL (0.2-1.0); CREATININE 0.7 mg/dL (0.5-1.3); MAGNESIUM 2.2 mg/dL (1.80-2.40); POTASSIUM 3.6 mmol/L (3.5-5.1); TOTAL PROTEIN, SERUM 5.6 g/dL (6.0-8.3)
[2024-02-21] MEDS ORDERED: IOHEXOL 350 MG/ML 100ML INFUS..BTL IV ONE (09:20)
[2024-02-21] MEDS: LoSARTan 50 MG TABLET PO SCH (11:24)
[2024-02-21] MEDS: trAZOdone HCL 50 MG TAB PO ONE (21:06)
[2024-02-22] VITALS (15 sets, daily range): BP systolic 105–131; BP diastolic 54–78; PULSE 80–98; RESP 16–20; TEMP 97.7–98.6; O2SAT 94–96
[2024-02-22 04:19] LABS: HEMATOCRIT 31.8 % (42-54); MEAN CORPUSCULAR HEMOGLOBIN 28.8 pg (27.0-33.0); MEAN CORPUSCULAR HGB CONC 32.4 g/dL (32.0-36.0); MEAN CORPUSCULAR VOLUME 88.8 fL (79-99); RED BLOOD CELL COUNT(AUTO) 3.58 MIL/uL (4.50-6.20); RED CELL DISTRIBUTION WIDTH 14.2 % (11.0-15.5); WHITE BLOOD COUNT (AUTO) 8.7 K/uL (4.8-10.8)
[2024-02-22 04:42] LABS: ALBUMIN 1.9 g/dL (3.5-5.0); BILIRUBIN,TOTAL 1.2 mg/dL (0.2-1.0); CREATININE 0.7 mg/dL (0.5-1.3); MAGNESIUM 2.1 mg/dL (1.80-2.40); PHOSPHORUS 3.1 mg/dL (2.5-4.9); POTASSIUM 3.5 mmol/L (3.5-5.1); TOTAL PROTEIN, SERUM 5.7 g/dL (6.0-8.3)
[2024-02-22 09:31] LABS: INR 1.11 (0.85-1.15); PROTHROMBIN TIME 11.9 SEC (9.6-11.6)
[2024-02-22] MEDS: LIDOCAINE 4% ADH..PATCH TP SCH (10:28)
[2024-02-23] VITALS (12 sets, daily range): BP systolic 102–131; BP diastolic 55–79; PULSE 63–100; RESP 16–20; TEMP 97–98.9; O2SAT 93–97
[2024-02-23 04:01] LABS: HEMATOCRIT 31.4 % (42-54); MEAN CORPUSCULAR HEMOGLOBIN 30.1 pg (27.0-33.0); MEAN CORPUSCULAR HGB CONC 34.1 g/dL (32.0-36.0); MEAN CORPUSCULAR VOLUME 88.2 fL (79-99); RED BLOOD CELL COUNT(AUTO) 3.56 MIL/uL (4.50-6.20); RED CELL DISTRIBUTION WIDTH 13.9 % (11.0-15.5); WHITE BLOOD COUNT (AUTO) 8.5 K/uL (4.8-10.8)
[2024-02-23] MEDS: 0.9%NACL 10ML VIAL IV SCH (10:05)
[2024-02-23] MEDS: IpraTROPium/alBUTERol SULFATE 3 ML SOLUTION IH PRN (11:16)
[2024-02-24] VITALS (14 sets, daily range): BP systolic 109–139; BP diastolic 55–79; PULSE 71–96; RESP 16–21; TEMP 97–98.9; O2SAT 94–98
[2024-02-24 04:23] LABS: MEAN CORPUSCULAR HEMOGLOBIN 29.1 pg (27.0-33.0); MEAN CORPUSCULAR HGB CONC 33.8 g/dL (32.0-36.0); MEAN CORPUSCULAR VOLUME 86.1 fL (79-99); RED BLOOD CELL COUNT(AUTO) 3.37 MIL/uL (4.50-6.20); RED CELL DISTRIBUTION WIDTH 14.2 % (11.0-15.5); WHITE BLOOD COUNT (AUTO) 7.6 K/uL (4.8-10.8)
[2024-02-24 04:44] LABS: ALBUMIN 1.9 g/dL (3.5-5.0); BILIRUBIN,TOTAL 0.8 mg/dL (0.2-1.0); CREATININE 0.6 mg/dL (0.5-1.3); POTASSIUM 3.4 mmol/L (3.5-5.1); TOTAL PROTEIN, SERUM 5.6 g/dL (6.0-8.3)
[2024-02-24] MEDS: PoTASSium chloRIDE 20MEQ ER 20 MEQ ERTAB PO ONE (09:50)
[2024-02-24 19:10] LABS: CRYPTOCOCCUS ANTIGEN, CSF Negative (Negative)
== END 2024-02-24 23:30 | DRG 870 ==
LOC: EDH 13:33 → EDHIP 18:59 → 2CH 21:13 → 2AH 02-19 17:34 → 2DH 02-21 22:31
PROVIDERS: ADMIT Internal Medicine; ATTEND Internal Medicine
PROC: 5A1955Z Respiratory Ventilation, Greater than 96 Consecutive Hours (ICD-10-PCS; principal; 2024-02-10)
PROC: 0BH17EZ Insertion of Endotracheal Airway into Trachea, Via Natural or Artificial Opening (ICD-10-PCS; 2024-02-10)
PROC: 009U3ZX Drainage of Spinal Canal, Percutaneous Approach, Diagnostic (ICD-10-PCS; 2024-02-15)
PROC: 30233R1 Transfusion of Nonautologous Platelets into Peripheral Vein, Percutaneous Approach (ICD-10-PCS; 2024-02-15)
PROC: 02HV33Z Insertion of Infusion Device into Superior Vena Cava, Percutaneous Approach (ICD-10-PCS; 2024-02-15)
PROC: B548ZZA Ultrasonography of Superior Vena Cava, Guidance (ICD-10-PCS; 2024-02-15)
PROC: 5A09357 Assistance with Respiratory Ventilation, Less than 24 Consecutive Hours, Continuous Positive Airway Pressure (ICD-10-PCS; 2024-02-17)
PROC: 5A1935Z Respiratory Ventilation, Less than 24 Consecutive Hours (ICD-10-PCS; 2024-02-17)
PROC: 5A09357 Assistance with Respiratory Ventilation, Less than 24 Consecutive Hours, Continuous Positive Airway Pressure (ICD-10-PCS; 2024-02-17)
PROC: 5A1935Z Respiratory Ventilation, Less than 24 Consecutive Hours (ICD-10-PCS; 2024-02-18)
PROC: 05H933Z Insertion of Infusion Device into Right Brachial Vein, Percutaneous Approach (ICD-10-PCS; 2024-02-22)
DX: A41.9 Sepsis, unspecified organism (principal); G93.41 Metabolic encephalopathy; J96.01 Acute respiratory failure with hypoxia; R65.21 Severe sepsis with septic shock; I50.33 Acute on chronic diastolic (congestive) heart failure; J18.9 Pneumonia, unspecified organism; I63.412 Cerebral infarction due to embolism of left middle cerebral artery; E87.21 Acute metabolic acidosis; N17.9 Acute kidney failure, unspecified; E87.0 Hyperosmolality and hypernatremia; I13.0 Hypertensive heart and chronic kidney disease with heart failure and stage 1 through stage 4 chronic kidney disease, or unspecified chronic kidney disease; M62.82 Rhabdomyolysis; N30.01 Acute cystitis with hematuria; Z16.12 Extended spectrum beta lactamase (ESBL) resistance; R47.01 Aphasia; R63.30 Feeding difficulties, unspecified; I25.10 Atherosclerotic heart disease of native coronary artery without angina pectoris; Z20.822 Contact with and (suspected) exposure to COVID-19; B96.20 Unspecified Escherichia coli [E. coli] as the cause of diseases classified elsewhere; R29.711 NIHSS score 11; B96.89 Other specified bacterial agents as the cause of diseases classified elsewhere; D64.9 Anemia, unspecified; D69.59 Other secondary thrombocytopenia; E11.22 Type 2 diabetes mellitus with diabetic chronic kidney disease; E11.65 Type 2 diabetes mellitus with hyperglycemia; E66.01 Morbid (severe) obesity due to excess calories; E78.00 Pure hypercholesterolemia, unspecified; I49.3 Ventricular premature depolarization; N18.2 Chronic kidney disease, stage 2 (mild); R29.810 Facial weakness; Z79.82 Long term (current) use of aspirin; Z74.01 Bed confinement status; Z95.1 Presence of aortocoronary bypass graft; Z79.02 Long term (current) use of antithrombotics/antiplatelets; Z83.3 Family history of diabetes mellitus; Z86.16 Personal history of COVID-19; Z87.01 Personal history of pneumonia (recurrent); Z68.38 Body mass index [BMI] 38.0-38.9, adult
CPT/HCPCS: 31500; 36415; 36556; 36600; 62270; 70450; 70551; 71045; 71270; 73630; 74018; 74178; 76770; 80048; 80051; 80053; 80076; 81001; 82140; 82435; 82550; 82570; 82803; 82945; 82947; 82948; 83605; 83735; 83880; 83935; 84100; 84132; 84145; 84157; 84295; 84300; 84443; 84484; 84540; 84550; 85018; 85025; 85027; 85378; 85610; 86022; 86641; 86850; 86900; 86901; 87040; 87071; 87086; 87186; 87205; 87210; 87426; 87483; 87529; 87804; 87899; 89051; 92522; 92610; 93005; 93306; 93356; 93880; 93970; 94002; 94003; 94150; 94640; 94664; 96365; 96367; 96375; 99291; C1751; C1894; G0378; J0171; J0456; J0692; J0696; J1100; J1644; J1815; J1940; J2060; J2185; J2250; J2371; J2470; J2704; J2919; J3010; J3411; J3475; J3480; J3490; J7070; P9034; Q9967; A4600; A9900; J3370